=== PATIENT | female | born 1980 | race Caucasian/White ===

== ENCOUNTER → 2017-10-01 | Outpatient (CLI) | payer BC ==
--- NOTE | 2017-10-01 14:41 | KCIC ---
Examination: Ultrasound abdomen limited HISTORY: History of right upper quadrant pain COMPARISON: None available FINDINGS: The visualized pancreas grossly appears unremarkable. The gallbladder wall thickness measures 1.7 mm. No evidence of gallstones identified. The liver measures 20.3 cm. There is mild increased echogenicity identified in the liver. The common bile duct measures 2.8 mm in diameter. The right kidney measures 11.9 cm in length. The partially visualized inferior vena cava appears patent. The evaluation of the aorta is limited due to bowel gas. IMPRESSION: 1. Mild hepatomegaly with hepatic steatosis. 2. No evidence of gallstones. Electronically signed by: Edmond Jain MD (10/01/2017 2:37 PM) [id number]
== END | disposition home or self-care (01) ==
LOC: KCIC US 08:35
PROVIDERS: ATTEND Nurse Practitioner Family
DX: K76.0 Fatty (change of) liver, not elsewhere classified (principal); R16.0 Hepatomegaly, not elsewhere classified
CPT/HCPCS: 76705